=== PATIENT | male | born 1970 ===

== ENCOUNTER 2020-09-18 22:10 | Emergency (ER) | payer OTHER, SELFPAY ==
[2020-09-18 22:12] VITALS: BP 127/72; PULSE 89; RESP 18; TEMP 36.1; O2SAT 97
--- NOTE | 2020-09-18 22:58 | ED.GENADULT ---
HPI - General Adult General Chief complaint: Wound/Laceration Stated complaint: fishing lure stuck in finger Time Seen by Provider: 09/18/20 22:22 History of Present Illness HPI narrative: Patient is a 49-year-old gentleman who presents the emergency department with chief complaint of fishhook in right pinky finger. The patient states that his dog startled him and the trouble hook from a lure got stuck in the pad of the right fifth digit. Patient denies any other injuries states he is unsure of his last tetanus shot. Patient reports there is moderate pain at the site is worse with movement of the lower Related Data Allergies Allergy/AdvReac Type Severity Reaction Status Date / Time No Known Allergies Allergy Unverified 06/26/17 08:42 Review of Systems Review of Systems: Narrative: A 10 system review of systems was completed on the patient and is negative except for what is stated in the HPI. Nursing and ancillary documentation was reviewed. PMFSH Comments Patient reports no significant past medical history Social history the patient denies illicit drug use Exam Narrative: Exam Narrative: GENERAL: Well-appearing, well-nourished, and in no acute distress. HEAD: Normocephalic, atraumatic. EYES: PERRLA and EOMI. ENT: Nares clear, no rhinorrhea or epistaxis. Mucous membranes moist. NECK: Supple. CHEST: Clear to auscultation. No respiratory distress. HEART: Regular rate and rhythm. No murmur heard. Normal peripheral pulses. ABDOMEN: Soft, nontender, nondistended, normal active bowel sounds. EXTREMITIES: Normal range of motion. No edema. SKIN: Warm, dry, no rash. There is a small trouble hook stuck in the volar aspect of the right pinky finger NEURO: No focal deficits. Alert and oriented x3. PSYCH: Normal mood and affect. Course Vital Signs Vital signs: Vital Signs Temperature 36.1 C L 09/18/20 22:12 Pulse Rate 89 09/18/20 22:12 Respiratory Rate 18 09/18/20 22:12 Blood Pressure 127/72 09/18/20 22:12 Pulse Oximetry 97 09/18/20 22:12 Temperature 36.1 C L 09/18/20 22:12 Pulse Rate 89 09/18/20 22:12 Respiratory Rate 18 09/18/20 22:12 Blood Pressure 127/72 09/18/20 22:12 Pulse Oximetry 97 09/18/20 22:12 Procedures Foreign Body Removal Foreign Body #1: Foreign Body Removal Date: 09/18/20 Foreign Body Removal Time: 23:00 Time Out Performed: yes Site: right and hand Description of foreign body: fish hook Sedation/Analgesia: none Technique: manual removal Confirmed by:: direct visualization Complications: none Post-procedure exam: awake, alert Neurovascular: normal distal pulse, normal capillary fill, distal light touch sensation intact, distal motor function normal and no signs of compartment syndrome Foreign Body Removal Narrative: The area was anesthetized with 1% lidocaine the fishhook was advanced and the sergey was cut off using a pair of wire cutters the remainder of the hook was removed by backing it out of the wound Medical Decision Making Vital Signs Vital Signs: Vital Signs Temperature 36.1 C L 09/18/20 22:12 Pulse Rate 89 09/18/20 22:12 Respiratory Rate 18 09/18/20 22:12 Blood Pressure 127/72 09/18/20 22:12 Pulse Oximetry 97 09/18/20 22:12 Temperature 36.1 C L 09/18/20 22:12 Pulse Rate 89 09/18/20 22:12 Respiratory Rate 18 09/18/20 22:12 Blood Pressure 127/72 09/18/20 22:12 Pulse Oximetry 97 09/18/20 22:12 Discharge Plan Discharge Clinical Impression: Foreign body in skin of finger Qualifiers: Encounter type: initial encounter Qualified Code(s): S60.459A - Superficial foreign body of unspecified finger, initial encounter Patient Disposition: Home, Self-Care Condition: Stable Instructions: Antibiotic Form, Soft Tissue Foreign Body (ED), Puncture Wound (ED) Follow-up/Referrals: Liliam,MD Eliazar [Primary Care Provider] - Time of Dis
--- NOTE | 2020-09-18 23:15 | PC.NURSE ---
pt refused Tdap shot. pt was given verbal instruction about the risk of not getting the Tdap. pt sts he was awhere and he told the provider that he didn't want the shot
[2020-09-18 23:17] VITALS: BP 117/79; PULSE 80; RESP 16; TEMP 36.6; O2SAT 100
== END 2020-09-18 23:18 | disposition home or self-care (01) ==
PROVIDERS: Emergency Provider Emergency Medicine; PCP Family Medicine
DX: S60.456A Superficial foreign body of right little finger, initial encounter (principal); W26.8XXA Contact with other sharp object(s), not elsewhere classified, initial encounter; W45.8XXA Other foreign body or object entering through skin, initial encounter
CPT/HCPCS: 99282